=== PATIENT | male | born 1970 | race Caucasian/White ===

== ENCOUNTER 2018-10-22 19:33 | Emergency (ER) | payer OTHER ==
[~2018-10-22] VITALS: Ht 165.1 cm; Wt 98.3 kg
[2018-10-22 19:38] VITALS: Ht 165.1 cm; Wt 98.3 kg
[2018-10-22] MEDS ORDERED: SOD CHLORIDE 0.9% 1,000 ML IV STA (20:12)
[2018-10-22] MEDS ORDERED: ONDANSETRON 4 MG INJ IV STA (20:12)
[2018-10-22] MEDS ORDERED: morphine 10 MG INJ IV ONE (20:30)
[2018-10-22] MEDS ORDERED: KETOROLAC 30 MG INJ IV STA (21:17)
[2018-10-22 22:50] VITALS: BP 123/78; PULSE 68; RESP 20
== END 2018-10-22 22:50 | disposition home or self-care (01) ==
LOC: EDUNIT# 19:33 → E/R 19:33
DX: N20.0 Calculus of kidney (principal)
CPT/HCPCS: 36415; 74176; 80053; 81001; 83690; 85025; 96374; 96375; J1885; J2270; J2405; J7030; Z7502